=== PATIENT | female | born 1965 | race Hispanic/Latino ===

== ENCOUNTER 2019-11-25 22:25 | Emergency (ER) | payer BC ==
[2019-11-25] MEDS ORDERED: LORAZEPAM 2 MG/ML 1 ML VIAL ONE (22:43)
== END 2019-11-26 00:01 | disposition home or self-care (01) ==
LOC: EDH 22:25
DX: F43.20 Adjustment disorder, unspecified (principal); F41.1 Generalized anxiety disorder; F32.9 Major depressive disorder, single episode, unspecified
CPT/HCPCS: 96372; 99284; J2060